=== PATIENT | male | born 1975 | race Caucasian/White ===

== ENCOUNTER → 2018-07-30 | Outpatient (CLI) | payer OTHER ==
--- NOTE | 2018-07-30 13:04 | XCELERA REPORT ---
[address] [place] [facility] [place] [address] Lower Extremity Venous Evaluation Procedure: Color flow and duplex imaging of the veins of the right lower extremity as well as the left Common Femoral vein. Right Sided Venous Evaluation Normal vessel filling wall to wall, compression and augmentation as well as Colour flow down to the infrageniculate veins. Left Sided Venous Evaluation The left common femoral vein is fully compressible. Spontaneous and phasic flow is present in the left common femoral vein. Interpretation Summary No duplex evidence of DVT or obstruction in the right lower extremity nor in the left Common Femoral vein. Name: SERGIO CHRISTENSEN Age: 42 yrs Gender: Male : 1975 Patient Status: Outpatient Patient Location: [facility] Study Date: 07/30/2018 08:50 AM Reason For Study: PAIN IN RLE Ordering Physician: INOCENTE RAYGOZA Performed By: Camille Barron : INOCENTE RAYGOZA > Bam Fernandez
== END ==
LOC: RAD 08:49
PROVIDERS: ATTEND Internal Medicine
DX: M79.661 Pain in right lower leg (principal)
CPT/HCPCS: 93971

== ENCOUNTER 2019-05-24 16:41 | Emergency (ER) | payer OTHER ==
[2019-05-24 17:09] LABS: ABSOLUTE BASOPHILS # (AUTO) 0.1 10^3/uL (0.0-0.2); ABSOLUTE EOSINOPHILS # (AUTO) 0.3 10^3/uL (0.0-0.6); ABSOLUTE LYMPHOCYTES (AUTO) 1.7 10^3/uL (0.5-4.7); ABSOLUTE MONOCYTES (AUTO) 0.5 10^3/uL (0.1-1.4); ABSOLUTE NEUT (AUTO) 4.2 10^3/uL (1.7-8.2); BASOPHILS % (AUTO) 1.5 % (0-2); EOSINOPHILS % (AUTO) 4.1 % (0-6); HEMATOCRIT 44.7 % (37.9-51.0); HEMOGLOBIN 14.1 g/dL (13.5-17.0); LYMPHOCYTES % (AUTO) 24.5 % (13-45); MEAN CORPUSCULAR HEMOGLOBIN 21.5 pg (27.0-33.4); MEAN CORPUSCULAR HGB CONC 31.6 g/dL (32.0-36.0); MEAN CORPUSCULAR VOLUME 68 fl (80-97); MONOCYTES % (AUTO) 7.8 % (3-13); PLATELET COUNT 306 10^3/uL (150-450); RED BLOOD COUNT 6.56 10^6/uL (4.35-5.55); RED CELL DISTRIBUTION WIDTH 19.4 % (11.5-14.0); SEGMENTED NEUTROPHILS % (AUTO) 62.1 % (42-78); TOTAL CELLS COUNTED % (AUTO) 100 %; WHITE BLOOD COUNT 6.8 10^3/uL (4.0-10.5)
[2019-05-24 17:26] LABS: ALBUMIN 4.9 g/dL (3.5-5.0); ALKALINE PHOSPHATASE 93 U/L (38-126); ANION GAP 12 (5-19); ASPARTATE AMINO TRANSFERASE 36 U/L (17-59); BILIRUBIN,TOTAL 1.5 mg/dL (0.2-1.3); BLOOD UREA NITROGEN 26 mg/dL (7-20); CARBON DIOXIDE 26 mmol/L (22-30); CHLORIDE 101 mmol/L (98-107); CREATINE KINASE 99 U/L (55-170); GLUCOSE 86 mg/dL (75-110); POTASSIUM 4.8 mmol/L (3.6-5.0); TOTAL PROTEIN 8.5 g/dL (6.3-8.2)
[2019-05-24 17:38] LABS: CREATINE KINASE MB 0.73 ng/mL (<4.55)
[2019-05-24 17:39] LABS: TROPONIN I < 0.012 ng/mL
--- NOTE | 2019-05-24 17:46 | EKG REPORT ---
SEVERITY:- NORMAL ECG - SINUS RHYTHM : Confirmed by: Red Smith MD 24-May-2019 17:46:33
--- NOTE | 2019-05-24 18:15 | ER Document Report ---
ED General - General Chief Complaint: Chest Pain Stated Complaint: PALPITATIONS Time Seen by Provider: 05/24/19 17:10 Primary Care Provider: INOCENTE RAYGOZA MD [Primary Care Provider] - Follow up as needed KACEY MCLEAN MD [ACTIVE STAFF] - Follow up as needed Notes: 43-year-old man presents to the emergency department history of sudden onset of rapid heartbeat and feeling lightheaded and weak after exercising today. Apparently has a history of polycythemia with therapeutic phlebotomy. His last treatment was in February. He also notes mild chest pain associated with the episode of rapid heartbeat EMS was called and rhythm strip revealed a sinus tachycardia. Patient was brought to the emergency department and notes that his symptoms began to improve he states that the episode of rapid heartbeat and chest pressure lasted for about 5 minutes. He complains of a residual chest pressure at this time. He also complained of shortness of breath. TRAVEL OUTSIDE OF THE [place] IN LAST 30 DAYS: No - Related Data Allergies/Adverse Reactions: No Known Allergies Allergy (Unverified 03/07/16 13:42) Home Medications: 81mg aspirin Past Medical History - Social History Smoking Status: Unknown if Ever Smoked Family History: Reviewed & Not Pertinent Patient has suicidal ideation: No Patient has homicidal ideation: No - Past Medical History Cardiac Medical History: Denies: Hx Heart Attack, Hx Hypertension Pulmonary Medical History: Denies: Hx Asthma Neurological Medical History: Denies: Hx Cerebrovascular Accident, Hx Seizures GI Medical History: Denies: Hx Hepatitis, Hx Hiatal Hernia, Hx Ulcer Infectious Medical History: Denies: Hx Hepatitis Past Surgical History: Denies: Hx Open Heart Surgery, Hx Pacemaker Review of Systems - Review of Systems Notes: Constitutional: Negative for fever. HENT: Negative for sore throat. Eyes: Negative for visual changes. Cardiovascular: + Rapid heartbeat, + chest pain Respiratory: Negative for shortness of breath. Gastrointestinal: Negative for abdominal pain, vomiting or diarrhea. Genitourinary: Negative for dysuria. Musculoskeletal: Negative for back pain. Skin: Negative for rash. Neurological: Negative for headaches, weakness or numbness. 10 point ROS negative except as marked above and in HPI. Physical Exam - Vital signs Vitals: Resp Pulse Ox 20 98 05/24/19 16:49 05/24/19 16:49 - Notes Notes: PHYSICAL EXAMINATION: Physical Exam: General: Well-nourished well-developed male in no acute distress HEENT: NC/AT, pupils equal round and reactive to light, MM moist,nares clear, Neck: supple, no adenopathy, no masses. Lungs: clear, no wheezing, no rales no rhonchi CVS: Regular rate and rhythm no murmur gallop or rub Abdomen: Soft active nontender, no masses, no hepatosplenomegaly Ext: No edema clubbing or cyanosis. Neuro: Alert and responsive, moving all 4 extremities on command, cranial nerves intact. Skin: Intact no open lesions, no rash PSYCH: Normal mood, normal affect. Course - Re-evaluation Re-evalutation: 05/24/19 20:49 Patient is feeling much better at this time, a CTA of the chest rule out pulmonary embolus, no acute findings were noted. I discussed with the patient the need for a stress test and have given him the name of the local brass buffer Dr. Mclean. I have asked him to touch base with his primary care doctor in case referral is needed. Patient is in agreement with this plan and states he will follow-up as directed. - Vital Signs Vital signs: Temp Pulse Resp BP Pulse Ox 98.3 F 77 16 118/71 94 05/24/19 21:11 05/24/19 21:11 05/24/19 21:11 05/24/19 21:11 05/24/19 21:11 - Laboratory Result Diagrams: 05/24/19 16:53 05/24/19 16:53 Laboratory results interpreted by me: 05/24/19 05/24/19 05/24/19 16:53 16:53 18:16 RBC 6.56 H MCV 68 L MCH 21.5 L MCHC 31.6 L RDW 19.4 H BUN 26 H Total Bilirubin 1.5 H Total Protein 8.5 H Urine Ketones TRACE H 05/24/19 20:50 I have reviewed laboratory data and used this information for the treatment decisions regarding the patient. - Diagnostic Test Radiology reviewed: Image reviewed, Reports reviewed - CTA chest: No acute vascular findings Discharge - Discharge Clinical Impression: Chest pressure Condition: Good Disposition: HOME, SELF-CARE Instructions: Chest Pain of Unclear Cause ([facility]), Palpitations (Irregular or Rapid Heartrate) ([facility]) Additional Instructions: Please follow-up with the brass buffer Dr. Mclean for evaluation and stress testing regarding your rapid heartbeat and chest pressure. If you call the office tomorrow you can be seen for an initial evaluation. Please contact your primary care doctor if referral is needed. You may return to the emergency department if you have further symptoms or concerns. Referrals: INOCENTE RAYGOZA MD [Primary Care Provider] - Follow up as needed KACEY MCLEAN MD [ACTIVE STAFF] - Follow up as needed
[2019-05-24 18:43] LABS: APPEARANCE,URINE CLEAR; BILIRUBIN,URINE NEGATIVE (NEGATIVE); COLOR,URINE STRAW; GLUCOSE, URINE NEGATIVE (NEGATIVE); KETONES,URINE TRACE mg/dL (NEGATIVE); LEUKOCYTE ESTERASE,URINE NEGATIVE (NEGATIVE); NITRITE,URINE NEGATIVE (NEGATIVE); PROTEIN,URINE NEGATIVE (NEGATIVE); URINE SPECIFIC GRAVITY 1.009; UROBILINOGEN,URINE NEGATIVE mg/dL (<2.0)
--- NOTE | 2019-05-24 19:48 | RADIOLOGY REPORT (SQ) ---
EXAM DESCRIPTION: CTA CHEST COMPLETED DATE/TIME: 05/24/2019 7:34 pm REASON FOR STUDY: Possible PE COMPARISON: None. TECHNIQUE: CT scan of the chest performed using helical scanning technique with dynamic intravenous contrast injection. Images reviewed with lung, soft tissue and bone windows. Reconstructed coronal and sagittal MPR images reviewed. Additional 3 dimensional post-processing performed to develop Maximal Intensity Projection images (RI P). All images stored on PACS. All CT scanners at this facility use dose modulation, iterative reconstruction, and/or weight based d osing when appropriate to reduce radiation dose to as low as reasonably achievable (ALARA). [facility]: Dose Right [facility]: CareDose [facility]: Dose Right [facility]: Teradose 4D [facility]: Theorem CONTRAST TYPE AND DOSE: contrast/concentration: Isovue 350.00 mg/ml; Total Contrast Delivered: 70.0 ml; Total Saline Delivered: 80.0 ml Contrast bolus adequate for pulmonary arteries and aorta. RENAL FUNCTION: BUN 26 creatinine 1.19 RADIATION DOSE: CT Rad equipment meets quality standard of care and radiation dose reduction techniq ues were employed. CTDIvol: 19.8 - 23.2 mGy. DLP: 870 mGy-cm. . LIMITATIONS: Sub optimal opacification of the pulmonary arteries. FINDINGS: LUNGS AND PLEURA: No masses, infiltrates, or pneumothorax. No pleural effusions or pleura l calcifications. AORTA AND GREAT VESSELS: No aneurysm. No dissection. HEART: No pericardial effusion. No significant coronary artery calcifications. PULMONARY ARTERIES: No emboli are seen in the central pulmonary arteries or larger branches. HILAR AND MEDIASTINAL STRUCTURES: No identified masses or abnormal nodes. HARDWARE: None in the chest. UPPER ABDOMEN: No significant findings. Limited exam. THYROID AND OTHER SOFT TISSUES: No masses. No adenopathy. BONES: No acute or significant finding. 3D MIPS: Confirm above findings. OTHER: No other significant finding. IMPRESSION: There is no aortic aneurysm or dissection. There is no pulmonary embolus. Evaluation i s slightly limited by suboptimal opacification of the pulmonary arteries. COMMENT: Quality ID # [id number]: Final reports with documentation of one or more dose reduction techniques (e.g., Automated exposure control, adjustment of the mA and/or kV according to patient size, use of iterative reconstruction technique) TECHNICAL DOCUMENTATION: JOB ID: [id number]- All Rights Reserved Reading location - IP/workstation name: [email or web address]
[2019-05-24 21:13] VITALS: BP 118/71
== END 2019-05-24 21:11 | disposition home or self-care (01) ==
LOC: ER 16:41
DX: R07.9 Chest pain, unspecified (principal); R00.2 Palpitations
CPT/HCPCS: 36415; 71275; 80053; 81001; 82550; 82553; 84484; 85025; 93005; 93010; 99285